=== PATIENT | female | born 1980 | race Caucasian/White ===

== ENCOUNTER 2024-03-21 10:30 | Emergency (ER) | payer OTHER, MEDICAID ==
[~2024-03-21] VITALS: Ht 152.4 cm; Wt 126.1 kg
[~2024-03-21 10:30] MED LIST: PRENCAP15
[2024-03-21 10:41] VITALS: BP 123/90; PULSE 87; RESP 22
--- NOTE | 2024-03-21 11:07 | ED.PDOC ---
History of Present Illness HPI Comments 43F presents to the ER w/ prior Hx of COPD and Asthma which all may be associated to the c/c of SOB. Pt reports on having a couch for 1 week as well as being on her last does of amoxicillin and not feeling any better. Denies chills, fever, N/V/D, CP or other associated symptom's, modifiers, or recent injuries or sick contact at this time. pt still smokes Chief Complaint: Cough Time Seen by MD: 11:00 Reviewed Notes: Nurses Notes, Medications, Allergies Allergies: Coded Allergies: NO KNOWN ALLERGIES (Unverified , 10/18/09) Home Meds Reported Medications Multivit-Min W/Fe-Fa (Mynatal) Cap 10/18/09 Information Source: Patient Mode of Arrival: Ambulatory Severity: Moderate Timing: Weeks Duration: Intermittent Prehospital treatment: None Past Medical History PAST MEDICAL HISTORY: Asthma, COPD Surgical History: Denies all surgeries BUSINESS OFFICE SPECIALIST History: No Pertinent BUSINESS OFFICE SPECIALIST History Social History Smoker: Cigarettes Alcohol: Denies ETOH Use Drugs: Denies Drug Use Lives In: Home Constitutional: denies: chills, diaphoresis, fatigue, fever, malaise, sweats, weakness, others EENTM: denies: blurred vision, double vision, ear bleeding, ear discharge, ear drainage, ear pain, ear ringing, eye pain, eye redness, hearing loss, mouth pain, mouth swelling, nasal discharge, nose bleeding, nose congestion, nose pain, photophobia, tearing, throat pain, throat swelling, voice changes, others Respiratory: reports: cough, shortness of breath; denies: hemoptysis, orthopnea, SOB at rest, SOB with excertion, stridor, wheezing, others Cardiovascular: denies: chest pain, dizzy spells, diaphoresis, Dyspnea on exertion, edema, irregular heart beat, left arm pain, lightheadedness, p alpitations, PND, syncope, others Gastrointestinal: denies: abdomen distended, abdominal pain, blood streaked bowels, constipated, diarrhea, dysphagia, difficulty swallowing, hematemesis, melena, nausea, poor appetite, poor fluid intake, rectal bleeding, rectal pain, vomiting, others Genitourinary: denies: abnormal vagina bleeding, burning, dyspareunia, dysuria, flank pain, frequency, hematuria, incontinence, pain, , vagina discharge, urgency, others Neurological: denies: dizziness, fainting, headache, left sided numbness, left sided weakness, numbness, paresthesia, pre-existing deficit, right sided numbness, right sided weakness, seizure, speech problems, tingling, tremors, weakness, others Musculoskeletal: denies: back pain, gout, joint pain, joint swelling, muscle pain, muscle stiffness, neck pain, others Integumetry: denies: bruises, change in color, change in hair/nails, dryness, laceration, lesions, lumps, rash, wounds, others Allergic/Immunocompromised: denies: Difficulty Healing, Frequent Infections, Hives, Itching, others Hematologic/Lymphatic: denies: anemia, blood clots, easy bleeding, easy bruising, swollen glands, others Endocrine: denies: excessive hunger, excessive sweating, excessive thirst, excessive urination, flushing, intolerance to cold, intolerance to heat, unexplained weight gain, unexplained weight loss, others Psychiatric: denies: anxiety, bipolar disorder, depression, hopeless, panic disorder, schizophrenia, sleepless, suicidal, others All Other Systems: Reviewed and Negative Physical Exam Exam Comments Bilat wheezing General Appearance: No Apparent Distress, Normal HEENT: Normal ENT Inspection, Pharynx Normal, TMs Normal Neck: Full Range of Motion, Non-Tender, Normal, Normal Inspection Respiratory: Chest Non-Tender, No Accessory Muscle Use, No Respiratory Distress, Normal Breath Sounds, Wheezing Cardiovascular: No Edema, No JVD, No Murmur, No Gallop, Normal Peripheral Pul ses, Regular Rate/Rhythm Breast Exam: Deferred Gastrointestinal: No Organomegaly, Non Tender, No Pulsatile Mass, Normal Bowel Sounds, Soft Genitalia: Deferred Pelvic: Deferred Rectal: Deferred Extremities: No calf tenderness, Normal capillary refill, Normal inspection, Normal range of motion, Non-tender, No pedal edema Musculoskeletal : Apperance: Normal Neurologic: Alert, it integration architect II-XII nml as Tested, No Motor Deficits, Normal Affect, Normal Mood, No Sensory Deficits Cerebellar Function: Normal Reflexes: Normal Skin: Dry, Normal Color, Warm Lymphatic: No Adenopathy Was a procedure done? Was a procedure done?: No Differential Dx Considerations may include: pneumonia, bronchitis, asthma/copd exacerbation, viral uri, tobacco dependence, ptx, lung mass X-Ray, Labs, Meds, VS Vital Signs Date Time Temp Pulse Resp B/P (MAP) Pulse Ox O2 Delivery O2 Flow Rate FiO2 03/21/24 11:14 93 Room Air* 0 21 03/21/24 10:41 97.9 87 22 123/90 (101) 94 Current Medications Medications (Trade) Dose Ordered Sig/Kacie Route Start Time Stop Time Status Last Admin Albuterol (Ventolin Medneb) 5 mg ONCE ONCE NEB 03/21/24 11:15 03/21/24 11:16 DC 03/21/24 11:14 Ipratropium [place] (Atrovent Medneb) 0.5 mg ONCE ONCE NEB 03/21/24 11:15 03/21/24 11:16 DC 03/21/24 11:14 Time of 1ST Reevaluation: 11:30 Reevaluation 1ST: Unchanged Time of 2ND Reevaluation: 12:39 Reevaluation 2ND: Improved Patient Education/Counseling: Diagnosis, Treatment, Prognosis, Need For Follow Up Family Education/Counseling: No Family Present Additional Information - The following tests were ordered, and results were reviewed by me: PHA, X-Ray - I reviewed and agreed with the following test results read by other provider: X-ray - I discussed treatments and results with medical personnel pt does not have pneumonia. her breathing is much improved. i advised that she stops smoking. i will prescribe her prednisone and she has inhalers at home Departure 1 Departure Time of Disposition: 12:40 Impression: Primary Impression: Asthma attack Qualified Codes: J45.21 - Mild intermittent asthma with (acute) exacerbation Additional Impressions: Viral URI with cough Tobacco abuse Disposition: HOME / SELF CARE / HOMELESS Condition: Good Discharged With: Self Critical Care Note Critical Care Time?: No Stability Stability form required: No I personally scribed for JESI MCMAHAN MD ([email or web address]) on 03/21/24 at 11:07. Electronically submitted by Manjinder Quijano ([email or web address]). JESI MCMAHAN MD Mar 21, 2024 11:07
[2024-03-21 11:14] VITALS: O2SAT 93
[2024-03-21] MEDS: IPRATROPIUM BROM 0.5 MG/2.5ML INH SOL NEB ONE (11:14)
[2024-03-21] MEDS: ALBUTEROL SULF 2.5 MG/0.5ML(0.5%) NEB SOLN NEB ONE (11:14)
--- NOTE | 2024-03-21 11:45 | DVH ---
CHEST RADIOGRAPH Indication: COUGH Technique: Single frontal view of the chest was obtained COMPARISON: None FINDINGS: Lines and Tubes: None Lungs: Clear Pleura: No effusion. No pneumothorax. Cardiomediastinal contours: Unremarkable Bones: Unremarkable IMPRESSION: No acute disease.
[2024-03-21] MEDS ORDERED: BENZ200C64 PO (12:42)
[2024-03-21] MEDS ORDERED: PRED20TA2 PO (12:42)
== END 2024-03-21 13:18 | disposition home or self-care (01) ==
LOC: ER 10:30
DX: J45.909 Unspecified asthma, uncomplicated (principal); J06.9 Acute upper respiratory infection, unspecified; B97.89 Other viral agents as the cause of diseases classified elsewhere; F17.210 Nicotine dependence, cigarettes, uncomplicated; J44.9 Chronic obstructive pulmonary disease, unspecified
CPT/HCPCS: 71045; 94640